=== PATIENT | female | born 1950 | race Caucasian/White ===

== ENCOUNTER → 2016-09-21 | Outpatient (CLI) | payer BC, OTHER ==
[2016-09-21 09:52] LABS: ALBUMIN 3.7 GM/DL (3.2-5.2); ALBUMIN/GLOBULIN RATIO 1.09 (1.00-1.93); ALKALINE PHOSPHATASE 78 U/L (45-117); ALT/SGPT 21 U/L (12-78); ANION GAP 8 MEQ/L (8-16); AST/SGOT 17 U/L (15-37); BILIRUBIN,TOTAL 0.5 MG/DL (0.2-1.0); BLOOD UREA NITROGEN 22 MG/DL (7-18); CALCIUM LEVEL 9.1 MG/DL (8.8-10.2); CARBON DIOXIDE LEVEL 29 MEQ/L (21-32); CHLORIDE LEVEL 107 MEQ/L (98-107); CHOLESTEROL LEVEL 173 MG/DL (<200); CREATININE FOR GFR 1.01 MG/DL (0.55-1.02); FREE T4 1.05 NG/DL (0.76-1.46); GLOMERULAR FILTRATION RATE 58.6 (>45); GLUCOSE, FASTING 95 MG/DL (80-110); POTASSIUM SERUM 4.2 MEQ/L (3.5-5.1); SODIUM LEVEL 144 MEQ/L (136-145); TOTAL PROTEIN 7.1 GM/DL (6.4-8.2); TRIGLYCERIDES LEVEL 104 MG/DL (<150)
[2016-09-21 10:23] LABS: MEAN CORPUSCULAR HEMOGLOBIN 32.9 pg (27.0-33.0); MEAN CORPUSCULAR HGB CONC 34.2 g/dl (32.0-36.5); MEAN CORPUSCULAR VOLUME 96.3 fl (80.0-96.0); RED CELL DISTRIBUTION WIDTH 12.3 % (11.5-14.5); WHITE BLOOD COUNT 6.5 K/mm3 (4.0-10.0)
[2016-09-21 10:32] LABS: VITAMIN B12 LEVEL 1148 PG/ML
[2016-09-21 10:33] LABS: FOLATE > 24.0 NG/ML
== END ==
LOC: M LAB 08:56
PROVIDERS: ATTEND Nurse Practitioner Family
DX: K21.9 Gastro-esophageal reflux disease without esophagitis (principal); E78.2 Mixed hyperlipidemia; E03.9 Hypothyroidism, unspecified; E55.9 Vitamin D deficiency, unspecified

== ENCOUNTER → 2017-02-15 | Outpatient (CLI) | payer BC ==
--- NOTE | 2017-02-15 10:13 | REPMRS ---
Patient History The patient states she had a clinical breast exam in 02/2017. Patient is postmenopausal and has history of basal and squamous cell skin cancer at age 57. Family history of ovarian cancer in sister at age 50 or over, colorectal cancer in brother at age 50 or over, breast cancer in niece, and ovarian cancer in niece under age 50. Taking estrogen for 3 years 3 months. Digital Woman Screen Mammo: February 15, 2017 - Exam #: [id number] Bilateral CC and MLO view(s) were taken. Technologist: Karmen Cuevas, Technologist Prior study comparison: December 04, 2015, digital woman screen mammo performed at [facility] [facility]. September 20, 2014, digital woman screen mammo performed at [facility] [place] [facility] [place]. FINDINGS: There are scattered fibroglandular densities. There has been no change in the appearance of the mammogram from the prior studies. There is a mild amount of residual fibroglandular tissue which is fairly symmetric. There is no interval development of dominant mass, architectural distortion, or clustered microcalcification suggestive of malignancy. ASSESSMENT: BI-RADS/ACR category 1 mammogram. Negative. Recommendation Routine screening mammogram in 1 year (for women over age 40). This mammogram was interpreted with the aid of an FDA-approved computer-aided dectection system. Electronically Signed By: Vicente Baldwin MD 02/15/17 [id number]
== END ==
LOC: M WHC 09:07
PROVIDERS: ATTEND Nurse Practitioner Family
DX: Z12.31 Encounter for screening mammogram for malignant neoplasm of breast (principal)

== ENCOUNTER → 2017-02-23 | Outpatient (REF) | payer OTHER | LOC: M SFHCWAGY 08:40 | PROVIDERS: ATTEND Nurse Practitioner Family | DX: Z80.41 Family history of malignant neoplasm of ovary (principal) ==

== ENCOUNTER → 2017-02-26 | Outpatient (CLI) | payer BC, OTHER ==
--- NOTE | 2017-02-26 12:20 | REP ---
PELVIC ULTRASOUND: Real-time sonographic of the pelvis performed utilized transabdominal and endovaginal technique. Bladder measures 7.1 x 8.4 x 5.7 cm. Uterus measures 6.3 x 2.1 x 5.3 cm. Endometrial thickness is 3 mm with no endometrial fluid collection. The right ovary is visualized and is normal in size and echotexture measuring 1.3 x 1.0 x 1.1 cm. There is no right ovarian torsion with blood flow seen in the right ovary with duplex Doppler evaluation, RI 0.59. Left ovary cannot be identified. I see no adnexal mass or free fluid. IMPRESSION: No evidence of adnexal mass or free fluid. Left ovary could not be identified.
[2017-02-26 12:37] LABS: CA 125 6.3 U/ML (<30.2)
== END ==
LOC: M WHC 09:24
PROVIDERS: ATTEND Nurse Practitioner Family
DX: R10.2 Pelvic and perineal pain (principal); N81.4 Uterovaginal prolapse, unspecified; Z80.41 Family history of malignant neoplasm of ovary

== ENCOUNTER → 2017-03-23 | Outpatient (CLI) | payer BC, OTHER ==
[2017-03-23 09:56] LABS: ALBUMIN 3.7 GM/DL (3.2-5.2); ALBUMIN/GLOBULIN RATIO 1.06 (1.00-1.93); ALKALINE PHOSPHATASE 85 U/L (45-117); ALT/SGPT 26 U/L (12-78); ANION GAP 7 MEQ/L (8-16); AST/SGOT 16 U/L (15-37); BILIRUBIN,TOTAL 0.5 MG/DL (0.2-1.0); BLOOD UREA NITROGEN 12 MG/DL (7-18); CALCIUM LEVEL 9.3 MG/DL (8.8-10.2); CARBON DIOXIDE LEVEL 30 MEQ/L (21-32); CHLORIDE LEVEL 107 MEQ/L (98-107); CREATININE FOR GFR 0.81 MG/DL (0.55-1.02); FREE T4 1.13 NG/DL (0.76-1.46); GLOMERULAR FILTRATION RATE > 60.0 (>45); GLUCOSE, FASTING 91 MG/DL (80-110); MAGNESIUM LEVEL 2.4 MG/DL (1.8-2.4); POTASSIUM SERUM 4.4 MEQ/L (3.5-5.1); SODIUM LEVEL 144 MEQ/L (136-145); TOTAL PROTEIN 7.2 GM/DL (6.4-8.2)
== END ==
LOC: M LAB 08:37
PROVIDERS: ATTEND Nurse Practitioner Family
DX: E03.9 Hypothyroidism, unspecified (principal); E78.2 Mixed hyperlipidemia; Z11.59 Encounter for screening for other viral diseases; K21.9 Gastro-esophageal reflux disease without esophagitis; E55.9 Vitamin D deficiency, unspecified

== ENCOUNTER → 2017-10-23 | Outpatient (CLI) | payer BC, OTHER ==
[2017-10-23 09:17] LABS: ALBUMIN 3.7 GM/DL (3.2-5.2); ALBUMIN/GLOBULIN RATIO 1.09 (1.00-1.93); ALKALINE PHOSPHATASE 85 U/L (45-117); ALT/SGPT 24 U/L (12-78); ANION GAP 5 MEQ/L (8-16); AST/SGOT 19 U/L (7-37); BILIRUBIN,TOTAL 0.5 MG/DL (0.2-1.0); BLOOD UREA NITROGEN 15 MG/DL (7-18); CALCIUM LEVEL 8.9 MG/DL (8.8-10.2); CARBON DIOXIDE LEVEL 29 MEQ/L (21-32); CHLORIDE LEVEL 110 MEQ/L (98-107); CHOLESTEROL LEVEL 158 MG/DL (<200); CHOLESTEROL RISK RATIO 2.925 (<5); CREATININE FOR GFR 1.06 MG/DL (0.55-1.30); FREE T4 1.02 NG/DL (0.76-1.46); GLOMERULAR FILTRATION RATE 55.2 (>45); GLUCOSE, FASTING 96 MG/DL (70-100); HDL CHOLESTEROL 54 MG/DL (>40); LDL CHOLESTEROL 87.4 MG/DL (<100); MAGNESIUM LEVEL 2.3 MG/DL (1.8-2.4); NON-HDL-C 104 MG/DL; POTASSIUM SERUM 4.3 MEQ/L (3.5-5.1); SODIUM LEVEL 144 MEQ/L (136-145); TOTAL PROTEIN 7.1 GM/DL (6.4-8.2); TRIGLYCERIDES LEVEL 83 MG/DL (<150)
[2017-10-25 11:19] LABS: TOTAL 25(OH) VITAMIN D 67.1 NG/ML (30.0-100.0)
== END ==
LOC: M LAB 08:25
DX: E78.2 Mixed hyperlipidemia (principal); E03.9 Hypothyroidism, unspecified; K21.9 Gastro-esophageal reflux disease without esophagitis; E55.9 Vitamin D deficiency, unspecified
CPT/HCPCS: 83735

== ENCOUNTER → 2017-12-02 | Outpatient (CLI) | payer BC, OTHER | LOC: M WUC 12:36 | DX: M51.36 Other intervertebral disc degeneration, lumbar region (principal) | CPT/HCPCS: 72110 ==

== ENCOUNTER → 2018-02-01 | Outpatient (CLI) | payer BC, OTHER | LOC: M WUC 15:48 | DX: M25.562 Pain in left knee (principal); M17.0 Bilateral primary osteoarthritis of knee | CPT/HCPCS: 73502 ==

== ENCOUNTER → 2018-04-20 | Outpatient (CLI) | payer BC | LOC: M WHC 10:23 | DX: Z12.31 Encounter for screening mammogram for malignant neoplasm of breast (principal); Z78.0 Asymptomatic menopausal state; Z80.41 Family history of malignant neoplasm of ovary; Z80.0 Family history of malignant neoplasm of digestive organs | CPT/HCPCS: 77067 ==

== ENCOUNTER → 2018-05-16 | Outpatient (CLI) | payer OTHER, BC ==
[2018-05-16 10:12] LABS: FREE T4 1.09 NG/DL (0.76-1.46)
[2018-05-16 10:14] LABS: TOTAL 25(OH) VITAMIN D 50.6 NG/ML (30.0-100.0)
== END ==
LOC: M WUC 09:03
DX: E03.9 Hypothyroidism, unspecified (principal); E55.9 Vitamin D deficiency, unspecified

== ENCOUNTER → 2018-11-15 | Outpatient (CLI) | payer MEDICARE, OTHER, BC ==
[2018-11-15 10:10] LABS: ALBUMIN 3.8 GM/DL (3.2-5.2); ALT/SGPT 24 U/L (12-78); BILIRUBIN,TOTAL 0.6 MG/DL (0.2-1.0); BLOOD UREA NITROGEN 14 MG/DL (7-18); CARBON DIOXIDE LEVEL 30 MEQ/L (21-32); CHLORIDE LEVEL 109 MEQ/L (98-107); CHOLESTEROL LEVEL 180 MG/DL (<200); CHOLESTEROL RISK RATIO 3.157 (<5); CREATININE FOR GFR 0.98 MG/DL (0.55-1.30); FREE T4 1.02 NG/DL (0.76-1.46); GLOMERULAR FILTRATION RATE > 60.0 (>45); GLUCOSE, FASTING 85 MG/DL (70-100); HDL CHOLESTEROL 57 MG/DL (>40); LDL CHOLESTEROL 102 MG/DL (<100); NON-HDL-C 123 MG/DL; POTASSIUM SERUM 4.3 MEQ/L (3.5-5.1); SODIUM LEVEL 142 MEQ/L (136-145); TOTAL PROTEIN 6.8 GM/DL (6.4-8.2); TRIGLYCERIDES LEVEL 107 MG/DL (<150)
[2018-11-15 10:58] LABS: TOTAL 25(OH) VITAMIN D 48.4 NG/ML (30.0-100.0)
== END ==
LOC: M WUC 08:08
PROVIDERS: ATTEND Nurse Practitioner Family
DX: E78.2 Mixed hyperlipidemia (principal); E03.9 Hypothyroidism, unspecified; E55.9 Vitamin D deficiency, unspecified

== ENCOUNTER 2018-12-14 12:05 | Day surgery (SDC) | payer MEDICARE, BC, OTHER ==
[~2018-12-14] VITALS: Ht 165.1 cm; Wt 78.0 kg
[~2018-12-14 12:05] MED LIST: ATOR1TAB19 PO; B-12100010 PO; CALC1TAB26 PO; D3 S20002 PO; LEVO50TA5 PO; LIDOCAINE 2% INJ 100 MG/5 ML SDV (FOR ANES.) As Ordered ONE; MULTCAP PO; NS 1,000 ML IV ONE; OMEP-221 PO; PROPOFOL 200 MG/20 ML VIAL As Ordered ONE; REST0.05 OU
--- NOTE | 2018-12-14 12:47 | ROOR ---
Patient Name: Adri Melchor Procedure Date: 12/14/2018 12:26 PM Date of : 1950 Age: 68 Room: [facility] Gender: Female Note Status: Finalized Procedure: Total Colonoscopy to Cecum Indications: Screening in patient at increased risk: Colorectal cancer in brother 60 or older, Colon cancer screening in patient at increased risk: Colorectal cancer in brother Providers: Jesus Suarez MD Referring MD: Eliana Burnham NP Requesting Provider: Medicines: Monitored Anesthesia Care Complications: No immediate complications. Procedure: Pre-Anesthesia Assessment: - The heart rate, respiratory rate, oxygen saturations, blood pressure, adequacy of pulmonary ventilation, and response to care were monitored throughout the procedure. The Colonoscope was introduced through the anus and advanced to the cecum, identified by appendiceal orifice and ileocecal valve. The colonoscopy was performed without difficulty. The patient tolerated the procedure well. The quality of the bowel preparation was good. Findings: The perianal and digital rectal examinations were normal. Non-bleeding internal hemorrhoids were found during retroflexion. The hemorrhoids were small and Grade I (internal hemorrhoids that do not prolapse). No other significant abnormalities were identified in a careful examination of the remainder of the colon. The exam was otherwise without abnormality on direct and retroflexion views. Impression: - Non-bleeding internal hemorrhoids. - The examination was otherwise normal on direct and retroflexion views. - No specimens collected. - The exam was otherwise normal to the cecum. Recommendation: - Patient has a contact number available for emergencies. The signs and symptoms of potential delayed complications were discussed with the patient. Return to normal activities tomorrow. Written discharge instructions were provided to the patient. - High fiber diet. - Discharge patient to home. - Continue present medications. - Repeat colonoscopy in 5 years for screening purposes. - Return to referring physician. - The findings and recommendations were discussed with the patient's family. Jesus Suarez MD Jesus Suarez MD 12/14/2018 12:47:01 PM Electronically signed by Jesus Suarez MD Number of Addenda: 0 Note Initiated On: 12/14/2018 12:26 PM Estimated Blood Loss: Estimated blood loss: none.
[2018-12-14 13:42] VITALS: BP 145/74
== END 2018-12-14 13:44 | disposition home or self-care (01) ==
LOC: M OPP 12:05
PROVIDERS: ATTEND Internal Medicine Gastroenterology
DX: K64.0 First degree hemorrhoids (principal); Z12.11 Encounter for screening for malignant neoplasm of colon; Z80.0 Family history of malignant neoplasm of digestive organs

== ENCOUNTER → 2019-01-16 | Outpatient (REF) | payer MEDICARE, OTHER ==
[~2019-01-16] MED LIST changes: -LIDOCAINE 2% INJ 100 MG/5 ML SDV (FOR ANES.) As Ordered ONE; -NS 1,000 ML IV ONE; -PROPOFOL 200 MG/20 ML VIAL As Ordered ONE
== END ==
LOC: M SFHCPLAZ 17:03
PROVIDERS: ATTEND Dermatology
DX: C44.320 Squamous cell carcinoma of skin of unspecified parts of face (principal); D23.30 Other benign neoplasm of skin of unspecified part of face

== ENCOUNTER → 2019-02-21 | Outpatient (REF) | payer MEDICARE, OTHER | LOC: M SFHCPLAZ 16:12 | PROVIDERS: ATTEND Dermatology | DX: C44.320 Squamous cell carcinoma of skin of unspecified parts of face (principal) ==

== ENCOUNTER → 2019-04-24 | Outpatient (REF) | payer MEDICARE, OTHER | LOC: M SFHCPLAZ 10:19 | PROVIDERS: ATTEND Dermatology | DX: L57.0 Actinic keratosis (principal) | CPT/HCPCS: 11102; 88305; G0463 ==

== ENCOUNTER → 2019-05-02 | Outpatient (CLI) | payer MEDICARE, BC ==
--- NOTE | 2019-05-02 11:02 | REPMRS ---
Patient History The patient states she had a clinical breast exam in 04/2019. Patient is postmenopausal and has history of other cancer at age 57. Patient had tested negative for BRCA2. Family history of colorectal cancer at age 50 or over in brother, ovarian cancer at age 50 or over in sister, ovarian cancer under age 50 in niece, breast cancer in niece, ovarian cancer at age 50 or over in sister. Genetically tested positive for BRCA2 in sister, positive for BRCA2 in paternal maternal niece, and positive for BRCA2 in paternal maternal niece. Took estrogen for 4 years 3 months. 3D TOMOSYNTHESIS WAS PERFORMED. The [facility] lifetime risk for breast cancer is 2.7%. Digital Woman Screen Mammo: May 02, 2019 - Exam #: [id number] Bilateral CC and MLO view(s) were taken. Technologist: Karmen Cuevas, Technologist Prior study comparison: April 20, 2018, bilateral digital woman screen mammo performed at [facility]. February 15, 2017, digital woman screen mammo performed at [facility]. FINDINGS: There are scattered fibroglandular densities. There has been no change in the appearance of the mammogram from the prior studies. There is a mild amount of residual fibroglandular tissue which is fairly symmetric. There is no interval development of dominant mass, architectural distortion, or clustered microcalcification suggestive of malignancy. Assessment: BI-RADS/ACR category 1 mammogram. Negative Mammogram. Recommendation Routine screening mammogram in 1 year (for women over age 40). This mammogram was interpreted with the aid of an FDA-approved computer-aided dectection system. Electronically Signed By: Vicente Baldwin MD 05/02/19 [id number]
== END ==
LOC: M WHC 09:31
PROVIDERS: ATTEND Nurse Practitioner Family
DX: Z01.419 Encounter for gynecological examination (general) (routine) without abnormal findings (principal); Z12.31 Encounter for screening mammogram for malignant neoplasm of breast; Z78.0 Asymptomatic menopausal state; Z85.89 Personal history of malignant neoplasm of other organs and systems; Z80.0 Family history of malignant neoplasm of digestive organs; Z80.41 Family history of malignant neoplasm of ovary; Z92.23 Personal history of estrogen therapy
CPT/HCPCS: 77063; 77067; G0101

== ENCOUNTER → 2019-05-19 | Outpatient (CLI) | payer MEDICARE, BC, OTHER ==
[2019-05-19 09:11] LABS: ALBUMIN 3.6 GM/DL (3.2-5.2); ALT/SGPT 23 U/L (12-78); BILIRUBIN,TOTAL 0.4 MG/DL (0.2-1.0); BLOOD UREA NITROGEN 19 MG/DL (7-18); CALCIUM LEVEL 9.4 MG/DL (8.8-10.2); CARBON DIOXIDE LEVEL 29 MEQ/L (21-32); CHLORIDE LEVEL 110 MEQ/L (98-107); CHOLESTEROL LEVEL 172 MG/DL (<200); CHOLESTEROL RISK RATIO 3.127 (<5); CREATININE FOR GFR 0.94 MG/DL (0.55-1.30); GLOMERULAR FILTRATION RATE > 60.0 (>45); GLUCOSE, FASTING 94 MG/DL (70-100); HDL CHOLESTEROL 55 MG/DL (>40); LDL CHOLESTEROL 94 MG/DL (<100); NON-HDL-C 117 MG/DL; POTASSIUM SERUM 4.4 MEQ/L (3.5-5.1); SODIUM LEVEL 142 MEQ/L (136-145); TOTAL PROTEIN 7.1 GM/DL (6.4-8.2); TRIGLYCERIDES LEVEL 114 MG/DL (<150)
[2019-05-19 10:11] LABS: TOTAL 25(OH) VITAMIN D 56.9 NG/ML (30.0-100.0)
== END ==
LOC: M LAB 07:29
PROVIDERS: ATTEND Nurse Practitioner Family
DX: E78.2 Mixed hyperlipidemia (principal); E03.9 Hypothyroidism, unspecified; E55.9 Vitamin D deficiency, unspecified

== ENCOUNTER → 2020-01-02 | Outpatient (REF) | payer MEDICARE, OTHER ==
[2020-01-02 12:56] LABS: ALBUMIN 3.9 GM/DL (3.2-5.2); BILIRUBIN,TOTAL 0.6 MG/DL (0.2-1.0); CALCIUM LEVEL 9.4 MG/DL (8.8-10.2); CHOLESTEROL RISK RATIO 2.944 (<5); GLOMERULAR FILTRATION RATE 58.5 (>45); POTASSIUM SERUM 4.4 MEQ/L (3.5-5.1); THYROID STIMULATING HORMONE 2.62 uIU/ML (0.358-3.740); TOTAL PROTEIN 7.5 GM/DL (6.4-8.2)
[2020-01-02 13:11] LABS: FREE T4 1.09 NG/DL (0.76-1.46)
[2020-01-02 13:58] LABS: TOTAL 25(OH) VITAMIN D 63.6 NG/ML (30.0-100.0)
== END ==
LOC: M SFHCLERA 09:23
PROVIDERS: ATTEND Nurse Practitioner Family
DX: E78.2 Mixed hyperlipidemia (principal); E03.9 Hypothyroidism, unspecified; E55.9 Vitamin D deficiency, unspecified

== ENCOUNTER → 2020-05-03 | Outpatient (CLI) | payer MEDICARE, BC ==
--- NOTE | 2020-05-03 09:13 | REPMRS ---
Patient History Patient had tested negative for BRCA2. Family history of colorectal cancer at age 50 or over in brother, ovarian cancer at age 50 or over in sister, ovarian cancer under age 50 in niece, breast cancer in niece, ovarian cancer at age 50 or over in sister. Took estrogen for 4 years 3 months. 3D TOMOSYNTHESIS WAS PERFORMED. The [facility] lifetime risk for breast cancer is 2.6%. Volpara breast density b. Digital Woman Screen Mammo: May 03, 2020 - Exam #: [id number] Bilateral CC and MLO view(s) were taken. Technologist: Mary Kate Luz, Technologist Prior study comparison: May 02, 2019, bilateral digital woman screen mammo performed at [facility]. April 20, 2018, bilateral digital woman screen mammo performed at [facility]. FINDINGS: There are scattered fibroglandular densities. There has been no change in the appearance of the mammogram from the prior studies. There is a mild amount of residual fibroglandular tissue which is fairly symmetric. There is no interval development of dominant mass, architectural distortion, or clustered microcalcification suggestive of malignancy. Assessment: BI-RADS/ACR category 1 mammogram. Negative Mammogram. Recommendation Routine screening mammogram in 1 year (for women over age 40). This mammogram was interpreted with the aid of an FDA-approved computer-aided dectection system. Electronically Signed By: Vicente Baldwin MD 05/03/20 0913
== END ==
LOC: M WHC 08:16
PROVIDERS: ATTEND Nurse Practitioner Family
DX: Z01.419 Encounter for gynecological examination (general) (routine) without abnormal findings (principal); Z12.31 Encounter for screening mammogram for malignant neoplasm of breast; Z80.0 Family history of malignant neoplasm of digestive organs; Z80.41 Family history of malignant neoplasm of ovary; Z92.23 Personal history of estrogen therapy
CPT/HCPCS: 77063; 77067; G0101

== ENCOUNTER → 2020-05-15 | Outpatient (CLI) | payer MEDICARE, BC ==
[2020-05-15 12:33] LABS: FREE T4 1.04 NG/DL (0.76-1.46); THYROID STIMULATING HORMONE 3.86 uIU/ML (0.358-3.740); TOTAL 25(OH) VITAMIN D 61.4 NG/ML (30.0-100.0)
== END ==
LOC: M WUC 09:29
PROVIDERS: ATTEND Nurse Practitioner Family
DX: E03.9 Hypothyroidism, unspecified (principal); E55.9 Vitamin D deficiency, unspecified

== ENCOUNTER → 2020-07-10 | Outpatient (CLI) | payer MEDICARE, BC ==
--- NOTE | 2020-07-10 10:55 | DEXAMM ---
INDICATION: M85.80 LOW BONE DENSITY. COMPARISON: Comparison studies are from September 20, 2014, April 21, 2012, March 15, 2009, and October 26, 2003.. TECHNIQUE: Bone density was measured using dual-energy x-ray absorptionmetry (DEXA). FINDINGS: AP SPINE L1-L4 BMD 1.082 g/cm2 Young Adult T-Score -0.9 Age Matched Z-Score 0.8. LT FEMUR, TOTAL BMD 0.834 g/cm2 Young Adult T-Score -1.4 Age Matched Z-Score 0.1. LT NECK BMD 0.798 g/cm2 Young Adult T-Score -1.7 Age Matched Z-Score -0.1. RT FEMUR, TOTAL BMD 0.851 g/cm2 Young Adult T-Score -1.2 Age Matched Z-Score 0.2. RT NECK BMD 0.822 g/cm2 Young Adult T-Score -1.6 Age Matched Z-Score 0.1. IMPRESSION: There is normal bone density of the spine. There is low bone density of the left hip. There is low bone density of the right hip. The density of the spine has decreased 5.7% since the initial exam on October 26, 2003. The density of the spine decrease 0.8% since most recent exam on September 20, 2014. The density of the left hip has decreased 14.5% since initial exam on October 26, 2003. The density of the left hip has decreased 5.2% since most recent exam on September 20, 2014. The density of the right hip has decreased 13.3% since the initial exam on October 26, 2003. The density of the right hip has decreased 4.9% since the most recent exam on September 20, 2014. FOLLOW-UP: Recommendation for the next bone density exam: 2 years. <Electronically signed by Des Ocasio > 07/10/20 [id number]
== END ==
LOC: M WHC 09:57
PROVIDERS: ATTEND Nurse Practitioner Family
DX: M85.80 Other specified disorders of bone density and structure, unspecified site (principal); Z78.0 Asymptomatic menopausal state

== ENCOUNTER → 2020-11-13 | Outpatient (CLI) | payer MEDICARE, BC, OTHER ==
[2020-11-13 09:12] LABS: ALBUMIN 3.7 GM/DL (3.2-5.2); ALT/SGPT 20 U/L (12-78); BILIRUBIN,TOTAL 0.6 MG/DL (0.2-1.0); BLOOD UREA NITROGEN 18 MG/DL (7-18); CALCIUM LEVEL 9.4 MG/DL (8.8-10.2); CARBON DIOXIDE LEVEL 28 MEQ/L (21-32); CHLORIDE LEVEL 109 MEQ/L (98-107); CHOLESTEROL LEVEL 154 MG/DL (<200); CREATININE FOR GFR 0.85 MG/DL (0.55-1.30); FREE T4 1.14 NG/DL (0.76-1.46); GLOMERULAR FILTRATION RATE > 60.0 (>39); GLUCOSE, FASTING 90 MG/DL (70-100); HDL CHOLESTEROL 55 MG/DL (>40); LDL CHOLESTEROL 79 MG/DL (<100); NON-HDL-C 99 MG/DL; POTASSIUM SERUM 4.3 MEQ/L (3.5-5.1); SODIUM LEVEL 141 MEQ/L (136-145); TRIGLYCERIDES LEVEL 101 MG/DL (<150)
== END ==
LOC: M LAB 07:54
PROVIDERS: ATTEND Nurse Practitioner Family
DX: E03.9 Hypothyroidism, unspecified (principal); E78.2 Mixed hyperlipidemia; E55.9 Vitamin D deficiency, unspecified

== ENCOUNTER → 2021-01-23 | Outpatient (REF) | payer MEDICARE, OTHER, BC ==
[~2021-01-23] MED LIST changes: -OMEP-221 PO; +OMEP40CA5 PO
== END ==
LOC: M LAB REF 14:27
PROVIDERS: ATTEND Physician Assistant
DX: D23.39 Other benign neoplasm of skin of other parts of face (principal)

== ENCOUNTER → 2021-04-29 | Outpatient (REF) | payer MEDICARE, OTHER ==
[~2021-04-29] MED LIST changes: +OMEP-221 PO; -OMEP40CA5 PO
== END ==
LOC: M LAB REF 18:22
PROVIDERS: ATTEND Physician Assistant
DX: D23.71 Other benign neoplasm of skin of right lower limb, including hip (principal)

== ENCOUNTER → 2021-05-06 | Outpatient (CLI) | payer MEDICARE, OTHER ==
--- NOTE | 2021-05-06 15:04 | REPMRS ---
Patient History The patient states she had a clinical breast exam in April 2021. Patient had tested negative for BRCA2. Family history of colorectal cancer at age 50 or over in brother, ovarian cancer at age 50 or over in sister, ovarian cancer under age 50 in niece, breast cancer in niece, ovarian cancer at age 50 or over in sister. Took estrogen for 4 years 3 months. Patient states no breast complaints today. Patient has signed MRS History Sheet. Digital Woman Screen Mammo: May 06, 2021 - Exam #: [id number] Bilateral CC and MLO view(s) were taken. Technologist: Bev Israel, Technologist Prior study comparison: May 03, 2020, bilateral digital woman screen mammo performed at [facility]. May 02, 2019, bilateral digital woman screen mammo performed at [facility]. FINDINGS: There are scattered fibroglandular densities. Screening. Digital screening (2D) mammography was performed bilaterally in the CC and MLO projections. Additionally, breast tomosynthesis (3D mammography) was performed bilaterally in the CC and MLO projections. Todays exam was compared to the prior exam/exams. By history, the patient has no complaints of a palpable breast abnormality or other significant breast complaints. The Volpara volumetric breast density category is B, there are scattered areas of fibroglandular densities. The breasts are unchanged in size and shape. There are no bebeto-soft tissue densities or spiculated masses. There is no internal architectural distortion. There are no suspicious bebeto-calcific clusters. Skin thickening or nipple retraction is not present. IMPRESSION: BI-RADS Category 2- Benign Findings. There is no evidence of malignant alteration of the breasts. Followup examination recommended in one year. The lifetime Tyrer-Cuzick score is 2.4% This mammogram was read with the assistance of [employer],an FDA approved computer aided detection system for mammography. Negative x-ray reports should not delay surgical consultation if a dominant or clinically suspicious mass is present. Not all breast cancers can be identified by mammography. Therefore, we recommend that you continue to perform regular breast self-examination and physical examination and then promptly contact your physician of any concerns or changes. Adenosis and dense breasts may obscure an underlying neoplasm. No significant changes when compared with prior studies. Assessment: BI-RADS/ACR category 2 mammogram. Benign Findings. Recommendation Routine screening mammogram of both breasts in 1 year. Electronically Signed By: Son Staples MD 05/06/21 [id number]
== END ==
LOC: M WHC 10:43
PROVIDERS: ATTEND Nurse Practitioner Women's Health
DX: Z01.419 Encounter for gynecological examination (general) (routine) without abnormal findings (principal); Z12.31 Encounter for screening mammogram for malignant neoplasm of breast; Z80.0 Family history of malignant neoplasm of digestive organs; Z80.41 Family history of malignant neoplasm of ovary; Z80.3 Family history of malignant neoplasm of breast; Z92.23 Personal history of estrogen therapy
CPT/HCPCS: 77063; 77067; G0101

== ENCOUNTER → 2021-09-16 | Outpatient (REF) | payer MEDICARE, OTHER ==
[~2021-09-16] MED LIST changes: -OMEP-221 PO; +OMEP40CA5 PO
== END ==
LOC: M SFHCPLAZ 11:21
PROVIDERS: ATTEND Nurse Practitioner Adult Health
DX: Z53.9 Procedure and treatment not carried out, unspecified reason (principal)

== ENCOUNTER → 2021-09-16 | Outpatient (CLI) | payer MEDICARE, BC, OTHER ==
[2021-09-16 16:15] LABS: ALBUMIN 3.6 GM/DL (3.2-5.2); ALT/SGPT 27 U/L (12-78); BILIRUBIN,TOTAL 0.3 MG/DL (0.2-1.0); BLOOD UREA NITROGEN 16 MG/DL (7-18); CALCIUM LEVEL 9.2 MG/DL (8.8-10.2); CARBON DIOXIDE LEVEL 28 MEQ/L (21-32); CHLORIDE LEVEL 107 MEQ/L (98-107); CREATININE FOR GFR 0.86 MG/DL (0.55-1.30); FOLATE > 24.0 NG/ML; FREE T4 1.08 NG/DL (0.76-1.46); GLOMERULAR FILTRATION RATE > 60.0 (>39); GLUCOSE, FASTING 85 MG/DL (70-100); MAGNESIUM LEVEL 2.2 MG/DL (1.8-2.4); POTASSIUM SERUM 4.3 MEQ/L (3.5-5.1); SODIUM LEVEL 140 MEQ/L (136-145); TOTAL 25(OH) VITAMIN D 54.6 NG/ML (30.0-100.0); TOTAL PROTEIN 6.9 GM/DL (6.4-8.2); VITAMIN B12 LEVEL > 2000 PG/ML
== END ==
LOC: M PLALAB 11:07
PROVIDERS: ATTEND Nurse Practitioner Adult Health
DX: E03.9 Hypothyroidism, unspecified (principal); K21.9 Gastro-esophageal reflux disease without esophagitis; E78.2 Mixed hyperlipidemia; E55.9 Vitamin D deficiency, unspecified; Z79.899 Other long term (current) drug therapy

== ENCOUNTER → 2022-04-01 | Outpatient (CLI) | payer MEDICARE, OTHER ==
[2022-04-01 09:09] LABS: ALBUMIN 3.6 GM/DL (3.2-5.2); ALT/SGPT 24 U/L (12-78); BILIRUBIN,TOTAL 0.6 MG/DL (0.2-1.0); BLOOD UREA NITROGEN 14 MG/DL (7-18); CALCIUM LEVEL 9.6 MG/DL (8.8-10.2); CARBON DIOXIDE LEVEL 30 MEQ/L (21-32); CHLORIDE LEVEL 108 MEQ/L (98-107); CHOLESTEROL LEVEL 154 MG/DL (<200); CREATININE FOR GFR 0.91 MG/DL (0.55-1.30); FREE T4 0.95 NG/DL (0.76-1.46); GLOMERULAR FILTRATION RATE > 60.0 (>39); GLUCOSE, FASTING 99 MG/DL (70-100); HDL CHOLESTEROL 50 MG/DL (>40); LDL CHOLESTEROL 75 MG/DL (<100); MAGNESIUM LEVEL 2.2 MG/DL (1.8-2.4); NON-HDL-C 104 MG/DL; POTASSIUM SERUM 3.9 MEQ/L (3.5-5.1); SODIUM LEVEL 140 MEQ/L (136-145); TOTAL PROTEIN 6.9 GM/DL (6.4-8.2); TRIGLYCERIDES LEVEL 146 MG/DL (<150)
[2022-04-01 11:46] LABS: VITAMIN B12 LEVEL > 2000 PG/ML (247-911)
== END ==
LOC: M LAB 07:39
PROVIDERS: ATTEND Nurse Practitioner Adult Health
DX: E78.2 Mixed hyperlipidemia (principal); K21.9 Gastro-esophageal reflux disease without esophagitis; E55.9 Vitamin D deficiency, unspecified; E03.9 Hypothyroidism, unspecified; Z79.899 Other long term (current) drug therapy

== ENCOUNTER → 2022-05-08 | Outpatient (CLI) | payer MEDICARE, BC, OTHER | LOC: M WHC 08:42 | PROVIDERS: ATTEND Nurse Practitioner Family | DX: Z12.31 Encounter for screening mammogram for malignant neoplasm of breast (principal) ==

== ENCOUNTER → 2022-11-19 | Outpatient (CLI) | payer MEDICARE, BC, OTHER ==
[2022-11-19 08:19] LABS: ALBUMIN 3.5 G/DL (3.2-5.2); ALKALINE PHOSPHATASE 66 U/L (46-116); ALT/SGPT 28 U/L (7.0-40); AST/SGOT 21 U/L (<34); BILIRUBIN,TOTAL 0.5 MG/DL (0.3-1.2); BLOOD UREA NITROGEN 19 MG/DL (9-23); CALCIUM LEVEL 9.3 MG/DL (8.3-10.6); CARBON DIOXIDE LEVEL 29 MMOL/L (20-31); CHLORIDE LEVEL 109 MMOL/L (98-107); CHOLESTEROL LEVEL 155 MG/DL (<200); CHOLESTEROL RISK RATIO 2.84 (<5); CREATININE FOR GFR 0.86 MG/DL (0.55-1.30); GLOMERULAR FILTRATION RATE > 60.0 (>39); GLUCOSE, FASTING 95 MG/DL (74-106); HDL CHOLESTEROL 54.4 MG/DL (>40); LDL CHOLESTEROL 81.4 MG/DL (<100); MAGNESIUM LEVEL 2.2 MG/DL (1.8-2.4); NON-HDL-C 100.6 MG/DL; POTASSIUM SERUM 4.2 MMOL/L (3.5-5.1); SODIUM LEVEL 141 MMOL/L (136-145); TOTAL PROTEIN 6.5 G/DL (5.7-8.2); TRIGLYCERIDES LEVEL 96 MG/DL (<150)
[2022-11-19 08:21] LABS: FREE T4 0.97 NG/DL (0.89-1.76)
== END ==
LOC: M LAB 07:02
PROVIDERS: ATTEND Nurse Practitioner Adult Health
DX: E78.2 Mixed hyperlipidemia (principal); E03.9 Hypothyroidism, unspecified; K21.9 Gastro-esophageal reflux disease without esophagitis; E55.9 Vitamin D deficiency, unspecified; Z79.899 Other long term (current) drug therapy

== ENCOUNTER → 2023-05-17 | Outpatient (CLI) | payer MEDICARE, BC, OTHER | LOC: M WHC 12:54 | PROVIDERS: ATTEND Nurse Practitioner Family | DX: Z12.31 Encounter for screening mammogram for malignant neoplasm of breast (principal) ==

== ENCOUNTER → 2023-11-22 | Outpatient (CLI) | payer MEDICARE, BC ==
[2023-11-22 09:49] LABS: ALBUMIN 3.9 G/DL (3.2-5.2); ALKALINE PHOSPHATASE 75 U/L (46-116); ALT/SGPT 28 U/L (7.0-40); AST/SGOT 27 U/L (<34); BILIRUBIN,TOTAL 0.6 MG/DL (0.3-1.2); BLOOD UREA NITROGEN 15 MG/DL (9-23); CALCIUM LEVEL 9.7 MG/DL (8.3-10.6); CARBON DIOXIDE LEVEL 27 MMOL/L (20-31); CHLORIDE LEVEL 107 MMOL/L (98-107); CHOLESTEROL LEVEL 179 MG/DL (<200); CHOLESTEROL RISK RATIO 3.11 (<5); CREATININE FOR GFR 0.81 MG/DL (0.55-1.30); GLOMERULAR FILTRATION RATE > 60.0 (>39); GLUCOSE, FASTING 96 MG/DL (74-106); HDL CHOLESTEROL 57.5 MG/DL (>40); LDL CHOLESTEROL 103.9 MG/DL (<100); MAGNESIUM LEVEL 2.2 MG/DL (1.8-2.4); NON-HDL-C 121.5 MG/DL; POTASSIUM SERUM 4.3 MMOL/L (3.5-5.1); SODIUM LEVEL 144 MMOL/L (136-145); TOTAL PROTEIN 7.3 G/DL (5.7-8.2); TRIGLYCERIDES LEVEL 88 MG/DL (<150)
[2023-11-22 09:50] LABS: FREE T4 1.03 NG/DL (0.89-1.76); THYROID STIMULATING HORMONE 3.974 uIU/ML (0.55-4.78)
[2023-11-22 09:51] LABS: VITAMIN B12 LEVEL 1476 PG/ML (211-911)
[2023-11-22 09:53] LABS: FOLATE > 24.0 NG/ML (>5.4)
== END ==
LOC: M LAB 08:10
PROVIDERS: ATTEND Nurse Practitioner Adult Health
DX: E78.2 Mixed hyperlipidemia (principal); E03.9 Hypothyroidism, unspecified; K21.9 Gastro-esophageal reflux disease without esophagitis; E55.9 Vitamin D deficiency, unspecified

== ENCOUNTER → 2023-12-10 | Outpatient (CLI) | payer MEDICARE, BC | LOC: M WHC 11:34 | PROVIDERS: ATTEND Nurse Practitioner Adult Health | DX: Z13.820 Encounter for screening for osteoporosis (principal); M85.851 Other specified disorders of bone density and structure, right thigh; M85.852 Other specified disorders of bone density and structure, left thigh ==

== ENCOUNTER 2024-05-08 07:02 | Day surgery (SDC) | payer MEDICARE, BC ==
[~2024-05-08] VITALS: Ht 162.6 cm; Wt 69.5 kg
[~2024-05-08 07:02] MED LIST changes: +NS 250 ML IV ONE; +THERTAB52 PO; +VITA100093 PO
[2024-05-08] MEDS ORDERED: LIDOCAINE 2% 100MG/5ML SDV (FOR ANES.) As Ordered ONE (08:11)
[2024-05-08] MEDS ORDERED: propofoL 200 MG/20 ML VIAL As Ordered ONE (08:11)
[2024-05-08 08:33] VITALS: TEMP 97.4
[2024-05-08 08:48] VITALS: BP 137/66; O2SAT 100
== END 2024-05-08 08:57 | disposition home or self-care (01) ==
LOC: M OPP 07:02
PROVIDERS: ATTEND Internal Medicine Gastroenterology
DX: Z12.11 Encounter for screening for malignant neoplasm of colon (principal); K64.0 First degree hemorrhoids; K57.30 Diverticulosis of large intestine without perforation or abscess without bleeding; Z80.0 Family history of malignant neoplasm of digestive organs; E03.9 Hypothyroidism, unspecified; E78.00 Pure hypercholesterolemia, unspecified; Z79.899 Other long term (current) drug therapy; Z79.890 Hormone replacement therapy; Z85.828 Personal history of other malignant neoplasm of skin; Z88.0 Allergy status to penicillin

== ENCOUNTER → 2024-05-15 | Outpatient (CLI) | payer MEDICARE, BC ==
[~2024-05-15] MED LIST changes: -NS 250 ML IV ONE
[2024-05-15 08:10] LABS: ALBUMIN 3.8 G/DL (3.2-5.2); ALKALINE PHOSPHATASE 69 U/L (35-104); ALT/SGPT 19 U/L (7.0-40); AST/SGOT 20 U/L (<34); BILIRUBIN,TOTAL 0.7 MG/DL (0.3-1.2); BLOOD UREA NITROGEN 21 MG/DL (9-23); CALCIUM LEVEL 10.7 MG/DL (8.3-10.6); CARBON DIOXIDE LEVEL 29 MMOL/L (20-31); CHLORIDE LEVEL 105 MMOL/L (98-107); CHOLESTEROL LEVEL 152 MG/DL (<200); CHOLESTEROL RISK RATIO 3.03 (<5); CREATININE FOR GFR 0.87 MG/DL (0.55-1.30); GLOMERULAR FILTRATION RATE > 60.0 (>39); GLUCOSE, FASTING 92 MG/DL (74-106); HDL CHOLESTEROL 50.1 MG/DL (>40); LDL CHOLESTEROL 84.5 MG/DL (<100); MAGNESIUM LEVEL 2.3 MG/DL (1.8-2.4); NON-HDL-C 101.9 MG/DL; POTASSIUM SERUM 4.2 MMOL/L (3.5-5.1); SODIUM LEVEL 138 MMOL/L (136-145); TOTAL PROTEIN 7.4 G/DL (5.7-8.2); TRIGLYCERIDES LEVEL 87 MG/DL (<150)
[2024-05-15 08:11] LABS: THYROID STIMULATING HORMONE 3.532 uIU/ML (0.55-4.78)
[2024-05-15 08:12] LABS: FREE T4 1.36 NG/DL (0.89-1.76)
== END ==
LOC: M LAB 06:42
PROVIDERS: ATTEND Nurse Practitioner Adult Health
DX: E78.2 Mixed hyperlipidemia (principal); E03.9 Hypothyroidism, unspecified; K21.9 Gastro-esophageal reflux disease without esophagitis; E55.9 Vitamin D deficiency, unspecified

== ENCOUNTER → 2024-05-18 | Outpatient (CLI) | payer MEDICARE, BC | LOC: M WHC 09:31 | PROVIDERS: ATTEND Nurse Practitioner Family | DX: Z12.31 Encounter for screening mammogram for malignant neoplasm of breast (principal); R92.323 Mammographic fibroglandular density, bilateral breasts ==

== ENCOUNTER → 2024-11-16 | Outpatient (CLI) | payer MEDICARE, BC ==
[2024-11-16 09:00] LABS: ALBUMIN 3.7 G/DL (3.2-5.2); ALKALINE PHOSPHATASE 57 U/L (35-104); ALT/SGPT 20 U/L (7.0-40); AST/SGOT 22 U/L (<34); BILIRUBIN,TOTAL 0.5 MG/DL (0.3-1.2); BLOOD UREA NITROGEN 15 MG/DL (9-23); CALCIUM LEVEL 9.5 MG/DL (8.3-10.6); CARBON DIOXIDE LEVEL 31 MMOL/L (20-31); CHLORIDE LEVEL 107 MMOL/L (98-107); CHOLESTEROL LEVEL 155 MG/DL (<200); CHOLESTEROL RISK RATIO 2.78 (<5); CREATININE FOR GFR 0.89 MG/DL (0.55-1.30); GLUCOSE, FASTING 91 MG/DL (74-106); HDL CHOLESTEROL 55.7 MG/DL (>40); LDL CHOLESTEROL 83.5 MG/DL (<100); MAGNESIUM LEVEL 2.2 MG/DL (1.8-2.4); NON-HDL-C 99.3 MG/DL; POTASSIUM SERUM 4.3 MMOL/L (3.5-5.1); SODIUM LEVEL 146 MMOL/L (136-145); TOTAL PROTEIN 6.9 G/DL (5.7-8.2); TRIGLYCERIDES LEVEL 79 MG/DL (<150)
[2024-11-16 09:03] LABS: FREE T4 1.23 NG/DL (0.89-1.76); VITAMIN B12 LEVEL 1460 PG/ML (211-911)
[2024-11-16 09:04] LABS: FOLATE > 24.0 NG/ML (>5.4); THYROID STIMULATING HORMONE 3.072 uIU/ML (0.55-4.78); TOTAL 25(OH) VITAMIN D 57.7 NG/ML (20.0-100.0)
== END ==
LOC: M LAB 07:04
PROVIDERS: ATTEND Nurse Practitioner Adult Health
DX: K21.9 Gastro-esophageal reflux disease without esophagitis (principal); E78.2 Mixed hyperlipidemia; E03.9 Hypothyroidism, unspecified; E55.9 Vitamin D deficiency, unspecified

== ENCOUNTER → 2025-05-22 | Outpatient (CLI) | payer MEDICARE, BC | LOC: M WHC 08:59 | PROVIDERS: ATTEND Physician Assistant | DX: Z12.31 Encounter for screening mammogram for malignant neoplasm of breast (principal); R92.323 Mammographic fibroglandular density, bilateral breasts; E53.8 Deficiency of other specified B group vitamins; K21.9 Gastro-esophageal reflux disease without esophagitis; E78.2 Mixed hyperlipidemia; E03.9 Hypothyroidism, unspecified; E55.9 Vitamin D deficiency, unspecified ==

== ENCOUNTER → 2025-05-22 | Outpatient (CLI) | payer MEDICARE, BC ==
[2025-05-22 11:26] LABS: FREE T4 1.15 NG/DL (0.89-1.76)
[2025-05-22 11:27] LABS: ALT/SGPT 21.0 U/L (7.0-40); AST/SGOT 25.0 U/L (<34); CALCIUM LEVEL 9.1 MG/DL (8.3-10.6); CARBON DIOXIDE LEVEL 30.0 MMOL/L (20-31); CHLORIDE LEVEL 103.0 MMOL/L (98-107); CHOLESTEROL LEVEL 158.0 MG/DL (<200); CHOLESTEROL RISK RATIO 2.59 (<5); CREATININE FOR GFR 0.9 MG/DL (0.55-1.30); GLOMERULAR FILTRATION RATE 67.1 (>39); LDL CHOLESTEROL 82.2 MG/DL (<100); MAGNESIUM LEVEL 2.1 MG/DL (1.8-2.4); NON-HDL-C 97.2 MG/DL; POTASSIUM SERUM 4.4 MMOL/L (3.5-5.1); SODIUM LEVEL 143.0 MMOL/L (136-145); TRIGLYCERIDES LEVEL 75.0 MG/DL (<150); VITAMIN B12 LEVEL 1130.0 PG/ML (211-911)
[2025-05-22 11:28] LABS: TOTAL 25(OH) VITAMIN D 54.3 NG/ML (20.0-100.0)
== END ==
LOC: M PLALAB 07:25
PROVIDERS: ATTEND Nurse Practitioner Adult Health
DX: E53.8 Deficiency of other specified B group vitamins (principal); K21.9 Gastro-esophageal reflux disease without esophagitis; E78.2 Mixed hyperlipidemia; E03.9 Hypothyroidism, unspecified; E55.9 Vitamin D deficiency, unspecified